=== PATIENT | male | born 1985 | race Caucasian/White ===

== ENCOUNTER 2017-05-01 07:49 | Emergency (ER) | payer OTHER, MEDICAID ==
[2017-05-01 08:07] VITALS: BP 152/93; PULSE 108; RESP 14; TEMP 97.5; O2SAT 97
--- NOTE | 2017-05-01 08:10 | EDPHY ---
H & P Stated Complaint: Bipolar concerns Time Seen by Provider: 05/01/17 08:04 HPI/ROS: CHIEF COMPLAINT: Bipolar HISTORY OF PRESENT ILLNESS: The patient is a 31-year-old man with a history of bipolar and alcohol abuse. He states that he is here because he wants to cure his bipolar. He is manic. He states that he has been drinking alcohol. He denies suicidality or homicidality. He states that he is taking his medications with that they do not work. He has a counselor and therapist but states that they are not helping. REVIEW OF SYSTEMS: Constitutional: denies: chills, fever, recent illness, recent injury EENTM: denies: blurred vision, double vision, nose congestion Respiratory: denies: cough, shortness of breath Cardiac: denies: chest pain, irregular heart rate, lightheadedness, palpitations Gastrointestinal/Abdominal: denies: abdominal pain, diarrhea, nausea, vomiting, blood streaked stools Genitourinary: denies: dysuria, frequency, hematuria, pain Musculoskeletal: denies: joint pain, muscle pain Skin: denies: lesions, rash, jaundice, bruising Neurological: denies: headache, numbness, paresthesia, tingling, dizziness, weakness Hematologic/Lymphatic: denies: blood clots, easy bleeding, easy bruising Immunologic/allergic: denies: HIV/AIDS, transplant EXAM: GENERAL: Rapid speech, pacing, eating HEAD: Atraumatic, normocephalic. EYES: Pupils equal round and reactive to light, extraocular movements intact, sclera anicteric, conjunctiva are normal. ENT: TMs normal, nares patent, oropharynx clear without exudates. Moist mucous membranes. NECK: Normal range of motion, supple without lymphadenopathy or JVD. LUNGS: Breath sounds clear to auscultation bilaterally and equal. No wheezes rales or rhonchi. HEART: Regular rate and rhythm without murmurs, rubs or gallops. ABDOMEN: Soft, nontender, normoactive bowel sounds. No guarding, no rebound. No masses appreciated. BACK: No CVA tenderness, no spinal tenderness, step-offs or deformities EXTREMITIES: Normal range of motion, no pitting or edema. No clubbing or cyanosis. NEUROLOGICAL: Cranial nerves II through XII grossly intact. Normal speech, normal gait. 5/5 strength, normal movement in all extremities, normal sensation PSYCH: Manic, confrontational SKIN: Warm, dry, normal turgor, no visible rashes or lesions. Source: Patient Exam Limitations: Clinical condition - Personal History Current Tetanus Diphtheria and Acellular Pertussis (TDAP): Unsure - Medical/Surgical History Hx Asthma: No Hx Chronic Respiratory Disease: No Hx Diabetes: No Hx Cardiac Disease: No Hx Renal Disease: No Hx Cirrhosis: No Hx Alcoholism: No Hx HIV/AIDS: No Hx Splenectomy or Spleen Trauma: No Other PMH: bipolar with inpatient hospitalization, HTN, ADHD - Family History Significant Family History: No pertinent family hx - Social History Smoking Status: Former smoker Alcohol Use: Heavy Drug Use: Marijuana Constitutional: Initial Vital Signs Temperature (C) 36.4 C 05/01/17 07:56 Heart Rate 108 H 05/01/17 07:56 Respiratory Rate 14 05/01/17 07:56 Blood Pressure 152/93 H 05/01/17 07:56 O2 Sat (%) 97 05/01/17 07:56 O2 Delivery Mode Room Air Allergies/Adverse Reactions: No Known Allergies Allergy (Unverified 12/26/14 14:10) Home Medications: Medication Instructions Recorded Abilify 12/26/14 Adderall 10 MG (RX) 12/26/14 Amlodipine Besylate 12/26/14 Lisinopril 12/26/14 [place] Aspartate 12/26/14 Seroquel 12/26/14 Medical Decision Making ED Course/Re-evaluation: The patient is clearly manic cover he is refusing to go over to the emergency department in [place] for mental health evaluation. At this point I do not feel that I am able to reasonably place him on a mental health hold. He is disabled but not gravely. He is caring for himself. He denies suicidality. He denies homicidality. He the states that every time he goes to the ER for an evaluation that does not work. I do not feel that I have justification for restraining him or forcibly sending him to the emergency department. He has been to [facility] several times and we have recommended that he return there. He understands that he is free to return if he changes his mind. Differential Diagnosis: Partial list of the Differential diagnosis considered include but were not limited to; anxiety, bipolar, alcoholism, substance abuse and although unlikely based on the history and physical exam, I also considered head injury, infection. Departure - Departure Disposition: Home, Routine, Self-Care Clinical Impression: Bipolar 1 disorder Condition: Fair Instructions: Bipolar Disorder (ED) Referrals: BRENT CHATTERJEE,. [Primary Care Provider] - As per Instructions
== END 2017-05-01 08:14 | disposition home or self-care (01) ==
LOC: CED 07:49
DX: F31.9 Bipolar disorder, unspecified (principal); I10 Essential (primary) hypertension; Z87.891 Personal history of nicotine dependence